=== PATIENT | female | born 1960 | race African-American/Black ===

== ENCOUNTER 2018-05-26 14:32 | Emergency (ER) | payer OTHER ==
[~2018-05-26] VITALS: Ht 165.1 cm; Wt 77.1 kg
[2018-05-26 14:32] VITALS: Ht 165.1 cm; Wt 77.1 kg
[~2018-05-26 14:32] MED LIST: CARDIZEM CD360 MG PO; COMBIVENT RESPI1 SP1 IH; FLOVENT HF0.044 MG/1 INH; HYDROCHLOROTHIA25 MG PO; HYDROXYZINE HYD25 MG PO; LORAZEPAM1 MG PO; ONDANSETRON8 M1 PO; PROCHLORPERAZIN10 MG PO; QVAR0.04 MG/Ac IH; SINGULAIR10 MG PO; VENTOLIN H0.09 MG/A1 INH; XELODA500 MG PO; [UNRECOGNIZED DRUG - OTHER] PO; [UNRECOGNIZED DRUG - REMARK]
[2018-05-26 15:00] VITALS: BP 153/99
== END 2018-05-26 19:38 | disposition expired ==
LOC: ED 14:32
DX: I46.9 Cardiac arrest, cause unspecified (principal)
CPT/HCPCS: 31500; 83880; J3490